=== PATIENT | male | born 1995 | race African-American/Black ===

== ENCOUNTER 2017-06-15 11:01 | Emergency (ER) | payer OTHER ==
[~2017-06-15] VITALS: Ht 180.3 cm; Wt 113.4 kg
--- NOTE | ~2017-06-15 | EKG ---
[place] [address] 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
[~2017-06-15 11:01] MED LIST: FLEXERIL PO; NAPROSYN500 MG PO; SKELAXIN 800 M800 M1
[2017-06-15] MEDS ORDERED: PREDNISONE 20 M20 MG PO (11:24)
[2017-06-15] MEDS ORDERED: NORCO 5-325 TA1 EACH PO (11:24)
== END 2017-06-15 11:59 | disposition home or self-care (01) ==
LOC: ER 11:01
DX: M54.12 Radiculopathy, cervical region (principal); R07.89 Other chest pain; E66.9 Obesity, unspecified; F17.210 Nicotine dependence, cigarettes, uncomplicated; J45.909 Unspecified asthma, uncomplicated; Z88.8 Allergy status to other drugs, medicaments and biological substances

== ENCOUNTER 2019-05-31 14:37 | Emergency (ER) | payer OTHER ==
[~2019-05-31] VITALS: Ht 180.3 cm; Wt 99.8 kg
[~2019-05-31 14:37] MED LIST changes: +NORCO 5-325 TA1 EACH PO; +PREDNISONE 20 M20 MG PO
[2019-05-31 14:38] VITALS: BP 162/93
[2019-05-31] MEDS ORDERED: CHLORHEXADINE120 M1 TOP (15:21)
[2019-05-31] MEDS ORDERED: DOXYCYCLINE 10100 MG PO (15:21)
== END 2019-05-31 15:35 | disposition home or self-care (01) ==
LOC: ER 14:37
DX: L01.00 Impetigo, unspecified (principal); J45.909 Unspecified asthma, uncomplicated; F17.210 Nicotine dependence, cigarettes, uncomplicated; Z91.011 Allergy to milk products; Z88.8 Allergy status to other drugs, medicaments and biological substances

== ENCOUNTER 2019-11-30 19:59 | Emergency (ER) | payer OTHER ==
[~2019-11-30] VITALS: Ht 180.3 cm; Wt 99.8 kg
[~2019-11-30 19:59] MED LIST changes: +CHLORHEXADINE120 M1 TOP; +DOXYCYCLINE 10100 MG PO
[2019-11-30 23:39] VITALS: BP 113/65
[2019-11-30] MEDS ORDERED: ONDANSETRON ODT8 MG PO (23:40)
== END 2019-11-30 23:50 | disposition home or self-care (01) ==
LOC: ER 19:59
DX: F10.129 Alcohol abuse with intoxication, unspecified (principal); J45.909 Unspecified asthma, uncomplicated; F17.210 Nicotine dependence, cigarettes, uncomplicated; Z79.899 Other long term (current) drug therapy; Z79.2 Long term (current) use of antibiotics; Z88.8 Allergy status to other drugs, medicaments and biological substances; Y90.9 Presence of alcohol in blood, level not specified

== ENCOUNTER 2020-11-24 07:57 | Emergency (ER) | payer OTHER ==
[~2020-11-24] VITALS: Ht 180.3 cm; Wt 90.7 kg
[~2020-11-24 07:57] MED LIST changes: +ONDANSETRON ODT8 MG PO
[2020-11-24 08:58] LABS: ABSOLUTE NEUTROPHILS 8.3 thou/uL (1.4-8.2); BASOPHILS 0.8 % (0.0-2.0); EOSINOPHILS 0.1 % (0.0-3.0); HEMATOCRIT 46.1 % (42.0-52.0); HEMOGLOBIN 15.7 gm/dL (14.0-18.0); LYMPHOCYTES 12.7 % (24.0-44.0); MCH 32.3 pg (26.0-34.0); MCHC 34.1 g/dL (28.0-37.0); MCV 94.7 fL (80.0-100.0); MONOCYTES 7.7 % (1.0-8.0); PLATELET COUNT 270 thou/uL (150-400); POLYS 78.7 % (36.0-66.0); RBC 4.87 mil/uL (4.50-6.00); WBC 10.5 thou/uL (4.0-11.0)
[2020-11-24 09:14] LABS: CREATININE 1.6 mg/dL (0.7-1.3); POTASSIUM 3.7 mmol/L (3.5-5.1)
[2020-11-24 10:45] LABS: AMP/METHAMP POSITIVE (Negative); BARBITURATES Negative (Negative); BENZODIAZEPINES Negative (Negative); COCAINE POSITIVE (Negative); METHADONE Negative (Negative); OPIATES Negative (Negative); PCP Negative (Negative)
[2020-11-24 11:05] VITALS: BP 137/77
== END 2020-11-24 11:05 | disposition home or self-care (01) ==
LOC: ER 07:57
PROVIDERS: Emergency Medicine
DX: F19.10 Other psychoactive substance abuse, uncomplicated (principal); B35.3 Tinea pedis; R45.89 Other symptoms and signs involving emotional state; J45.909 Unspecified asthma, uncomplicated; F17.210 Nicotine dependence, cigarettes, uncomplicated; Z79.899 Other long term (current) drug therapy; Z79.2 Long term (current) use of antibiotics; Z88.8 Allergy status to other drugs, medicaments and biological substances; Z91.011 Allergy to milk products